=== PATIENT | female | born 1950 | race Caucasian/White ===

== ENCOUNTER 2019-04-05 17:54 | Emergency (ER) | payer OTHER ==
[~2019-04-05] VITALS: Ht 152.4 cm; Wt 63.5 kg
[2019-04-05 18:18] VITALS: Ht 152.4 cm; Wt 63.5 kg
[2019-04-05 20:38] LABS: BASOPHIL % 0.5 % (0-2); RED CELL DISTRIBUTION WIDTH 14.2 % (11.5-14.5)
[2019-04-05 20:41] LABS: PLATELET COUNT 472 x10^3mcL (130-400)
[2019-04-05 20:47] LABS: CALCIUM 9.6 mg/dL (8.5-10.1); CARBON DIOXIDE 22.4 mmol/L (21-32); POTASSIUM SERUM 4.3 mmol/L (3.5-5.1)
[2019-04-05 20:51] LABS: ALBUMIN 3.1 g/dL (3.4-5.0); BILIRUBIN TOTAL 0.6 mg/dL (0.20-1.00); TOTAL PROTEIN, SERUM 7.5 g/dL (6.4-8.2)
[2019-04-05 23:48] LABS: UA SPECIFIC GRAVITY 1.025 (1.005-1.035); microscopic required? YES; urine erythrocyte 3+ (NEGATIVE)
[2019-04-06 00:52] VITALS: BP 144/63
== END 2019-04-06 00:52 | disposition home or self-care (01) ==
LOC: ED 17:54
PROVIDERS: Emergency Medicine
DX: E11.40 Type 2 diabetes mellitus with diabetic neuropathy, unspecified (principal); E11.65 Type 2 diabetes mellitus with hyperglycemia; N39.0 Urinary tract infection, site not specified; I10 Essential (primary) hypertension; Z88.8 Allergy status to other drugs, medicaments and biological substances
CPT/HCPCS: 82962; J0696; J1885; J2405; J7030; J7060; Q0092

== ENCOUNTER 2019-04-23 16:55 | Emergency (ER) | payer OTHER ==
[~2019-04-23] VITALS: Ht 152.4 cm; Wt 65.8 kg
[2019-04-23 17:02] VITALS: Ht 152.4 cm; Wt 65.8 kg
[2019-04-23 17:59] LABS: CALCIUM 9.6 mg/dL (8.5-10.1); CARBON DIOXIDE 24.2 mmol/L (21-32); CHLORIDE SERUM 93 mmol/L (98-107); CREATININE SERUM 0.7 mg/dL (0.6-1.0); GFR1 > 60 mL/min; GLUCOSE SERUM 171 mg/dL (74-106); POTASSIUM SERUM 4.6 mmol/L (3.5-5.1); SODIUM SERUM 128 mmol/L (136-145)
[2019-04-23 18:11] LABS: ALBUMIN 2.7 g/dL (3.4-5.0); ALKALINE PHOSPHATASE 97 U/L (46-116); ALT/SGPT 17 U/L (14-59); AST/SGOT 13 U/L (15-37); BASOPHIL % 0.4 % (0-2); BILIRUBIN TOTAL 0.32 mg/dL (0.20-1.00); CHOLESTEROL 166 mg/dL (<200); HDL CHOLESTEROL 45 mg/dL (40-60); LIPASE 42 IU/L (73-393); MAGNESIUM 1.5 mg/dL (1.8-2.4); T4(THYROXINE) 6.8 ug/dL (4.7-13.3)
[2019-04-23 18:25] LABS: PLATELET COUNT 561 x10^3mcL (130-400)
[2019-04-23 19:02] LABS: microscopic required? YES; urine erythrocyte 1+ (NEGATIVE)
[2019-04-23 19:14] LABS: AMPHETAMINE QUAL UR NONE DETECTED (See below)
[2019-04-23] MEDS ORDERED: BASAGLAR K100 UNIT/1 SQ (20:14)
[2019-04-23] MEDS ORDERED: LOSARTAN POTASS25 M1 PO (20:15)
[2019-04-23] MEDS ORDERED: METFORMIN HCL750 MG PO (20:15)
[2019-04-23] MEDS ORDERED: NEU300 PO (20:15)
[2019-04-23 21:59] VITALS: BP 174/83
== END 2019-04-23 21:59 | disposition home or self-care (01) ==
LOC: ED 16:55
PROVIDERS: Emergency Medicine
DX: E11.40 Type 2 diabetes mellitus with diabetic neuropathy, unspecified (principal); E87.1 Hypo-osmolality and hyponatremia; I10 Essential (primary) hypertension; Z88.6 Allergy status to analgesic agent
CPT/HCPCS: 36600; 82962; J1100; J1885; Q0092

== ENCOUNTER 2019-07-26 18:30 | Inpatient (IN) | payer OTHER ==
[~2019-07-26] VITALS: Ht 152.4 cm; Wt 49.9 kg
[~2019-07-26 18:30] MED LIST: BASAGLAR K100 UNIT/1 SQ; METFORMIN HCL750 MG PO; NEU300 PO
[2019-07-26 18:52] VITALS: Ht 152.4 cm; Wt 49.9 kg
[2019-07-26 19:48] LABS: BASOPHIL % 0.1 % (0-2); PLATELET COUNT 484 x10^3mcL (130-400); RED CELL DISTRIBUTION WIDTH 16.8 % (11.5-14.5)
[2019-07-26 20:03] LABS: UA SPECIFIC GRAVITY 1.015 (1.005-1.035); microscopic required? YES; urine erythrocyte TRACE (NEGATIVE)
[2019-07-26 20:14] LABS: BILIRUBIN TOTAL 0.2 mg/dL (0.20-1.00); CALCIUM 9.3 mg/dL (8.5-10.1); CARBON DIOXIDE 20.6 mmol/L (21-32); CREATININE SERUM 1.7 mg/dL (0.6-1.0); TOTAL PROTEIN, SERUM 6.4 g/dL (6.4-8.2)
[2019-07-26 20:16] LABS: ALBUMIN 2.3 g/dL (3.4-5.0)
[2019-07-26 20:19] LABS: POTASSIUM SERUM 6.3 mmol/L (3.5-5.1)
[2019-07-26 23:16] VITALS: BP 100/50
[2019-07-27 05:46] VITALS: BP 99/55
[2019-07-27 06:42] LABS: PLATELET COUNT 405 x10^3mcL (130-400); RED CELL DISTRIBUTION WIDTH 16.6 % (11.5-14.5)
[2019-07-27 06:43] LABS: CALCIUM 8.5 mg/dL (8.5-10.1); CREATININE SERUM 1.3 mg/dL (0.6-1.0); POTASSIUM SERUM 5.1 mmol/L (3.5-5.1)
[2019-07-27 08:15] VITALS: BP 105/59
[2019-07-27 12:09] VITALS: BP 125/76
[2019-07-27 15:56] VITALS: BP 123/65
[2019-07-27 21:17] VITALS: BP 84/42
[2019-07-28 05:14] VITALS: BP 106/50
[2019-07-28 07:06] LABS: ALKALINE PHOSPHATASE 69 U/L (46-116); ALT/SGPT 17 U/L (14-59); AST/SGOT 25 U/L (15-37); CALCIUM 8.6 mg/dL (8.5-10.1); CARBON DIOXIDE 18.6 mmol/L (21-32); CHLORIDE SERUM 111 mmol/L (98-107); CREATININE SERUM 0.8 mg/dL (0.6-1.0); GFR1 > 60 mL/min; GLUCOSE SERUM 112 mg/dL (74-106); MAGNESIUM 1.3 mg/dL (1.8-2.4); POTASSIUM SERUM 4.2 mmol/L (3.5-5.1); SODIUM SERUM 135 mmol/L (136-145)
[2019-07-28 07:17] LABS: ALBUMIN 1.7 g/dL (3.4-5.0)
[2019-07-28 07:44] LABS: BASOPHIL % 0.3 % (0-2)
[2019-07-28 07:45] LABS: PLATELET COUNT 406 x10^3mcL (130-400); RED CELL DISTRIBUTION WIDTH 16.7 % (11.5-14.5)
[2019-07-28 08:12] VITALS: BP 106/58
[2019-07-28 12:04] VITALS: BP 117/56
[2019-07-28 16:35] VITALS: BP 100/34
[2019-07-28 19:41] VITALS: BP 99/47
[2019-07-29 04:09] VITALS: BP 136/70
[2019-07-29 08:27] VITALS: BP 109/52
[2019-07-29 11:50] VITALS: BP 113/58
[2019-07-29 15:39] VITALS: BP 118/49
[2019-07-29 17:19] VITALS: BP 118/49
[2019-07-29] MEDS ORDERED: LOSARTAN POTASS25 M1 PO (17:28)
== END 2019-07-29 20:03 | DRG 640 ==
LOC: ED 18:30 → DU 20:40
PROVIDERS: Emergency Medicine; Internal Medicine Pulmonary Disease; ADMIT Internal Medicine Pulmonary Disease
DX: E87.5 Hyperkalemia (principal); N17.0 Acute kidney failure with tubular necrosis; N39.0 Urinary tract infection, site not specified; E86.0 Dehydration; E87.1 Hypo-osmolality and hyponatremia; E11.649 Type 2 diabetes mellitus with hypoglycemia without coma; Z79.899 Other long term (current) drug therapy; Z79.84 Long term (current) use of oral hypoglycemic drugs
CPT/HCPCS: 36600; 82962; 87804; 97110-GP; 97530-GP; G0378; J0696; J1650; J3475; J3490; J7042; J7060; U0002